=== PATIENT | male | born 1970 | race Caucasian/White ===

== ENCOUNTER 2021-12-28 10:51 | Day surgery (SDC) | payer OTHER ==
[~2021-12-28] VITALS: Ht 180.3 cm; Wt 99.1 kg
[~2021-12-28 10:51] MED LIST: NICOTINE PATCH1 EAC1 TD; NICOTINE PATCH1 EACH TD; NORCO 5-325 TA1 EACH PO; OMEPRAZOLE20 M1 PO; PHENERGAN25 MG PO; PROMETHAZINE HC25 M1 PO; SUCRALFATE1 GM/10 ML PO; ZOFRAN ODT8 MG PO
--- NOTE | 2021-12-28 11:15 | NUR ---
THIS RN TO ROOM TO ASSIST WITH IV START. IV STARTED PER PROTOCOL. BRISK BLOOD RETURN NOTED. IV FLUIDS STARTED, SEE MAR. NO ADDITIONAL NEEDS AT THIS TIME. CALL LIGHT WITHIN REACH. BED RAILS UP.
--- NOTE | 2021-12-28 13:53 | NUR ---
12/28/21 1353 Marlen Mcgee 1347-PATIENT ARRIVED TO PACU ON RA RR EVEN. PATIENTS EYES ARE CLOSED AND PATIENT IS TALKING ABOUT DOGS AND PICTURES ON SCREEN. PATIENT LAYING LEFT LATERAL. PATIENT ORIENTED TO PACU. SR. IVF INFUSING. 1352-PATIENT AWAKE TALKING DENIES PAIN OR NAUSEA. PATIENT REPOSITIONED SELF TO BACK RA 98% RR EVEN. PATIENT HAS HX OF ETOH.
--- NOTE | 2021-12-29 13:04 | OR ---
[facility] [address] [place], [place] [address] Signed DATE OF OPERATION: 12/28/2021 SURGEON: Corrie Horton MD PREOPERATIVE DIAGNOSES: 1. Family history of colon carcinoma (mother). 2. Recurrent diverticulitis. POSTOPERATIVE DIAGNOSIS: Sigmoid diverticulosis, otherwise normal. PROCEDURE: Total colonoscopy to cecum. ANESTHESIA: Intravenous sedation, propofol infusion; Amparo Tellez CRNA INDICATIONS: This 51-year-old white man is a patient of EVGENY Eden. He is known to me from the past having undergone colonoscopy in October of 2015, at which time he had no sign of colitis, ischemia, or neoplasm. The patient has had recurrent bouts of diverticulitis, none recently. Notably, he does have family history of colon cancer in his mother. He is admitted at this time to undergo screening colonoscopy. He understands the risks of bleeding, infection, and perforation. FINDINGS: The prep was good. Complete colonoscopy was undertaken to the cecum without question. There were numerous diverticula of the sigmoid and left colon, but no evidence of polyps, cancer, or other abnormality. DESCRIPTION OF PROCEDURE: The patient was brought to the endoscopy suite and placed in lateral decubitus position given intravenous sedation with propofol infusional technique. Digital rectal examination was normal. An Olympus video colonoscope was passed into the rectum and manipulated throughout the colon ultimately intubating the cecum itself. The ileocecal valve and appendiceal orifice were normal. Scope was withdrawn. Examination throughout showed no sign of now abnormality until the sigmoid where numerous diverticula were seen. Retroflexed view of the rectum was normal. Scope was removed. The patient was taken to the recovery room Electronically Signed By: CORRIE HORTON MD 12/29/21 1304 PATIENT NAME: NIRMALA DERASN OPERATIVE REPORT DATE OF : 68 REPORT #: [id number] PHYSICIAN: CORRIE HORTON MD PCP: JEANNE GOLD REPORT IS CONFIDENTIAL AND NOT TO BE RELEASED WITHOUT AUTHORIZATION [facility] [address] [facility] [place], [place] [address] Signed in good condition. CONCLUDING DIAGNOSIS: Diverticulosis, no evidence of polyps or cancer. PLAN: Recommend repeat colonoscopy in 5 years based on family history of first-degree relative (mother). Additionally, we would recommend high-fiber diet regarding diverticulosis. MD OLIVIA Mitchell/RUSSELL /[id number] cc: EVGENY Eden Copies: ~ Electronically Signed By: CORRIE HORTON MD 12/29/21 1304 PATIENT NAME: NIRMALA DERAS SHANI OPERATIVE REPORT DATE OF : 68 REPORT #: [id number] PHYSICIAN: CORRIE HORTON MD PCP: JEANNE GOLD REPORT IS CONFIDENTIAL AND NOT TO BE RELEASED WITHOUT AUTHORIZATION
== END 2021-12-28 14:20 | disposition home or self-care (01) ==
LOC: DS 10:51 → OPS 10:51
PROVIDERS: ATTEND Surgery
PROC: 0DJD8ZZ Inspection of Lower Intestinal Tract, Via Natural or Artificial Opening Endoscopic (ICD-10-PCS; principal; 2021-12-28 12:00)
DX: K57.30 Diverticulosis of large intestine without perforation or abscess without bleeding (principal); F43.10 Post-traumatic stress disorder, unspecified; S36.09XS Other injury of spleen, sequela; X58.XXXS Exposure to other specified factors, sequela; Z80.0 Family history of malignant neoplasm of digestive organs; Z72.89 Other problems related to lifestyle; Z87.438 Personal history of other diseases of male genital organs
CPT/HCPCS: J2001; J2704; J7121